=== PATIENT | female | born 1940 | race Caucasian/White ===

== ENCOUNTER 2023-03-01 16:22 | Emergency (ER) | payer MEDICARE | END 2023-03-01 17:53 | disposition home or self-care (01) | LOC: JP.ED 16:22 | DX: Z48.89 Encounter for other specified surgical aftercare (principal); I10 Essential (primary) hypertension; Z79.899 Other long term (current) drug therapy; Z88.1 Allergy status to other antibiotic agents; Z95.1 Presence of aortocoronary bypass graft | CPT/HCPCS: 99282 ==